=== PATIENT | male | born 1960 | race African-American/Black ===

== ENCOUNTER 2017-04-30 13:39 | Emergency (ER) | payer MEDICAID ==
[~2017-04-30] VITALS: Ht 180.3 cm; Wt 75.3 kg
[~2017-04-30 13:39] MED LIST: ALBUTEROL INHALER; PHEN100C4 PO; QUET100T PO
[2017-04-30 15:32] VITALS: BP 120/78
[2017-04-30 18:01] LABS: APPEARANCE,URINE SL CLOUDY (CLEAR); BILIRUBIN,URINE NEGATIVE (NEGATIVE); BLOOD, URINE TRACE-I (NEGATIVE); COLOR,URINE YELLOW (YELLOW); LEUKOCYTE ESTERASE ,URINE 2+ (NEGATIVE); NITRITE, URINE NEGATIVE (NEGATIVE); UGLUCOSE NEGATIVE (NEGATIVE)
[2017-04-30 18:06] LABS: RBC,URINE 3-10 (FEW) /HPF (0-5); WBC,URINE TOO MANY TO COUNT /HPF (0-5)
[2017-04-30] MEDS ORDERED: cefTRIAXone 1,000 MG in LIDOCAINE 1% ***ER ONLY *** 2.1 ML IM ONE (18:15)
[2017-04-30 18:43] VITALS: BP 120/78
--- NOTE | 2017-04-30 18:48 | NUR ---
Patient discharged with v/s stable. Written and verbal after care instructions given and explained. Patient alert, oriented and verbalized understanding of instructions. Ambulatory with to car. All questions addressed prior to discharge. ID band removed. Patient advised to follow up with PMD. Rx of DOXYCYCLINE AND PYRIDIUM given. Patient educated on indication of medication including possible reaction and side effects. Opportunity to ask questions provided and answered.
== END 2017-04-30 18:40 | disposition home or self-care (01) ==
LOC: MED 13:39
DX: N39.0 Urinary tract infection, site not specified (principal); J45.909 Unspecified asthma, uncomplicated
CPT/HCPCS: 81001; 87086; 99284

== ENCOUNTER 2019-05-07 22:25 | Emergency (ER) | payer MEDICAID ==
[~2019-05-07] VITALS: Ht 180.3 cm; Wt 117.9 kg
[2019-05-07 22:30] VITALS: BP 131/74
--- NOTE | 2019-05-07 22:33 | NUR ---
TO LOBBY A/W BED VIA WHEELCHAIR
--- NOTE | 2019-05-07 23:30 | NUR ---
PT BROUGHT TO BED 11 VIA WHEELCHAIR
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
[2019-05-08] MEDS ORDERED: fentaNYL 0.05 MG/ML VIAL IVP ONE (02:20)
[2019-05-08] MEDS ORDERED: PANTOPRAZOLE 40 MG INJ VIAL IVP ONE (02:25)
[2019-05-08] MEDS ORDERED: fentaNYL 0.05 MG/ML VIAL ONE (03:24)
[2019-05-08 03:25] LABS: BASOPHILS % (AUTO) 0.3 % (0.0-2.0); EOSINOPHILS # (AUTO) 0.7 K/uL (0-0.4); HEMATOCRIT 27.8 % (36-52); HEMOGLOBIN 8.9 g/dL (12.0-18.0); LYMPHOCYTES # (AUTO) 0.9 K/uL (2.0-11.5); LYMPHOCYTES % (AUTO) 16.3 % (20.5-51.1); MEAN CORPUSCULAR HEMOGLOBIN 25 pg (27-31); MEAN CORPUSCULAR HGB CONC 32 g/dL (33-37); MEAN CORPUSCULAR VOLUME 76.5 fL (80-94); MONOCYTES # (AUTO) 0.3 K/uL (0.8-1.0); MONOCYTES % (AUTO) 4.6 % (1.7-9.3); NEUTROPHILS # (AUTO) 3.8 K/uL (1.8-7.7); NEUTROPHILS % (AUTO) 66.2 % (42.2-75.2); PLATELET COUNT (AUTO) 271 K/uL (140-450); RED BLOOD CELL COUNT(AUTO) 3.63 MIL/uL (4.20-6.10); RED CELL DISTRIBUTION WIDTH 19.6 % (11.6-13.7); WHITE BLOOD COUNT (AUTO) 5.8 K/uL (4.8-10.8)
[2019-05-08 03:26] LABS: APPEARANCE,URINE CLEAR (CLEAR); BILIRUBIN,URINE NEGATIVE (NEGATIVE); BLOOD, URINE NEGATIVE (NEGATIVE); COLOR,URINE YELLOW (YELLOW); LEUKOCYTE ESTERASE ,URINE TRACE (NEGATIVE); NITRITE, URINE NEGATIVE (NEGATIVE); UGLUCOSE NEGATIVE (NEGATIVE)
[2019-05-08 03:34] LABS: RBC,URINE 0-5 /HPF (0-5)
[2019-05-08 03:41] LABS: ALBUMIN 3.7 g/dL (3.4-5.0); ANION GAP 15.7 (8-16); CARBON DIOXIDE 26.1 mmol/L (21-32); CREATININE 1.4 mg/dL (0.7-1.3); EOSINOPHILS % (AUTO) 12.6 % (0.0-4.0); POTASSIUM 4.8 mmol/L (3.5-5.1); TOTAL BILIRUBIN 0.3 mg/dL (0.0-1.0)
[2019-05-08] MEDS ORDERED: PROMETHAZINE 25 MG/ML VIAL IVP ONE (04:35)
[2019-05-08] MEDS ORDERED: LORazepam 2 MG/ML VIAL IVP ONE (04:35)
[2019-05-08] MEDS ORDERED: ACETAMINOPHEN/CODEINE 300/30MG 1 TAB PO ONE (05:00)
--- NOTE | 2019-05-08 06:11 | NUR ---
pt transfer to ct via w/c.
[2019-05-08] MEDS ORDERED: PROMETHAZINE 25 MG/ML VIAL ONE (06:55)
--- NOTE | 2019-05-08 07:26 | NUR ---
Pt report given to WYATT MENDEZ. Transfer of care at this time.
[2019-05-08 08:58] VITALS: BP 108/64
--- NOTE | 2019-05-08 08:58 | NUR ---
Patient discharged with v/s stable. Written and verbal after care instructions given and explained. Patient alert, oriented and verbalized understanding of instructions. Ambulatory with steady gait. All questions addressed prior to discharge. ID band removed. Patient advised to follow up with PMD. Rx of MOTRIN,ZOFRAN,NORCO given. Patient educated on indication of medication including possible reaction and side effects. Opportunity to ask questions provided and answered.
== END 2019-05-08 08:58 | disposition home or self-care (01) ==
LOC: MED 22:25
DX: R10.13 Epigastric pain (principal); J45.909 Unspecified asthma, uncomplicated; Z79.899 Other long term (current) drug therapy
CPT/HCPCS: 36415; 74176; 80053; 81001; 82150; 83690; 85025; 87086; 96374; 96375; 99284; C9113; J2060; J2550; J3010

== ENCOUNTER 2019-05-19 03:50 | Emergency (ER) | payer MEDICAID ==
[~2019-05-19] VITALS: Ht 180.3 cm; Wt 72.6 kg
[2019-05-19 04:00] VITALS: BP 123/63
--- NOTE | 2019-05-19 04:09 | NUR ---
PT SCOTTIE HOLDEN. TAKEN TO BED 11
--- NOTE | 2019-05-19 04:10 | NUR ---
PT ASSESSMENT COMPLETE. PT LALYING SUPINE IN BED. WILL CONTINUE TO MONITOR.
[2019-05-19] MEDS ORDERED: DICYCLOMINE HCL LIQUID 20 MG, ALUMINUM HYD/MAG/SIMETHICONE 30 ML, LIDOCAINE VISCOUS 2% ... PO ONE ×3 (04:45)
--- NOTE | 2019-05-19 04:45 | NUR ---
PT REPORTS DECCREASED PAIN 11/10. WILL CONTINUE TO MONITOR.
[2019-05-19] MEDS ORDERED: LIDOCAINE VISCOUS 2% 20 ML UDC ONE (04:53)
[2019-05-19] MEDS ORDERED: ALUMINUM HYD/MAG/SIMETHICONE 30 ML UDC ONE (04:53)
[2019-05-19] MEDS ORDERED: DICYCLOMINE HCL LIQUID 10 MG/5 ML UDC ONE (04:54)
[2019-05-19] MEDS ORDERED: MORPHINE SULFATE 4 MG/ML SYR IM ONE (05:25)
--- NOTE | 2019-05-19 05:43 | NUR ---
BLOOD DRAWN AND TAKEN TO LAB.
[2019-05-19 06:27] LABS: CREATININE 1.3 mg/dL (0.7-1.3)
[2019-05-19 06:28] LABS: ALBUMIN 2.6 g/dL (3.4-5.0); TOTAL BILIRUBIN 0.1 mg/dL (0.0-1.0)
[2019-05-19 06:31] LABS: ANION GAP 9.9 (8-16); CARBON DIOXIDE 30.1 mmol/L (21-32)
--- NOTE | 2019-05-19 07:00 | NUR ---
PT UP FOR DISCHASRGE. PT REPORTS UNRESOLVED PAIN AND WOULD LIKE TO SPEAK WITH ERMD. DR. SOLOMON MADE AWARE.
--- NOTE | 2019-05-19 07:15 | NUR ---
BEDSIDE REPORT GIVEN TO WYATT PATEL. TRANSFER OF CARE AT THIS TIME.
[2019-05-19] MEDS ORDERED: MORPHINE SULFATE 4 MG/ML SYR IVP ONE ×2 (07:20→08:40)
[2019-05-19] MEDS ORDERED: ONDANSETRON 4 MG/2 ML VIAL IVP ONE (07:20)
[2019-05-19] MEDS ORDERED: NACL 0.9% 1,000 ML IV ONE (07:20)
--- NOTE | 2019-05-19 07:49 | NUR ---
RECEIEVED SBAR REPORT FROM ADRIEL SCHNEIDER. PATIENT IS IN BED AND RATES FLANK/ABD PAIN 10/10. IV THERAPY STARTED ON PATIENT.
--- NOTE | 2019-05-19 08:50 | NUR ---
PATIENTS PAIN IS UNRESOLVED, RATING ABD PAIN 10/10. ERMD NOTIFIED. MORPHINE WILL BE GIVEN.
[2019-05-19 09:38] VITALS: BP 128/67
--- NOTE | 2019-05-19 09:39 | NUR ---
Patient discharged with v/s stable. Written and verbal after care instructions given and explained. Patient alert, oriented and verbalized understanding of instructions. Ambulatory with steady gait. All questions addressed prior to discharge. ID band removed. Patient advised to follow up with PMD. Rx of ALANNAH CUETO given. Patient educated on indication of medication including possible reaction and side effects. Opportunity to ask questions provided and answered.
--- NOTE | 2019-05-23 08:24 | NUR ---
Late entry. Confirmed with RN that 0.9 NS IV completed at 0845
== END 2019-05-19 09:39 | disposition home or self-care (01) ==
LOC: MED 03:50
DX: R10.13 Epigastric pain (principal); J45.909 Unspecified asthma, uncomplicated; Z79.899 Other long term (current) drug therapy
CPT/HCPCS: 36415; 80053; 83690; 96361; 96372; 96374; 96375; 96376; 99283; J2270; J2405; J7030

== ENCOUNTER 2021-11-18 18:30 | Emergency (ER) | payer MEDICAID ==
[~2021-11-18] VITALS: Ht 175.3 cm; Wt 72.6 kg
[2021-11-18 19:05] VITALS: BP 145/95
[2021-11-18 19:52] LABS: BASOPHILS % (AUTO) 0.7 % (0.0-2.0); EOSINOPHILS # (AUTO) 0.6 K/uL (0-0.4); EOSINOPHILS % (AUTO) 14.6 % (0.0-4.0); HEMATOCRIT 40.5 % (36-52); HEMOGLOBIN 13.6 g/dL (12.0-18.0); LYMPHOCYTES # (AUTO) 1.3 K/uL (2.0-11.5); LYMPHOCYTES % (AUTO) 33.4 % (20.5-51.1); MEAN CORPUSCULAR HEMOGLOBIN 30 pg (27-31); MEAN CORPUSCULAR HGB CONC 34 g/dL (33-37); MEAN CORPUSCULAR VOLUME 88.1 fL (80-94); MONOCYTES # (AUTO) 0.2 K/uL (0.8-1.0); MONOCYTES % (AUTO) 6.1 % (1.7-9.3); NEUTROPHILS # (AUTO) 1.8 K/uL (1.8-7.7); NEUTROPHILS % (AUTO) 45.2 % (42.2-75.2); PLATELET COUNT (AUTO) 270 K/uL (140-450); RED CELL DISTRIBUTION WIDTH 13.5 % (11.6-13.7)
[2021-11-18 20:12] LABS: ALBUMIN 3.9 g/dL (3.4-5.0); ANION GAP 11.7 (8-16); ASPARTATE AMINOTRANSFERASE 19 U/L (15-37); CARBON DIOXIDE 28.2 mmol/L (21-32); CHLORIDE 105 mmol/L (98-107); CREATININE 1.4 mg/dL (0.6-1.3); GFR ARICAN-AMERICAN 66 mL/min (>90); GLUCOSE 121 mg/dL (74-106); LIPASE 935 U/L (73-393); POTASSIUM 4.9 mmol/L (3.5-5.1); SODIUM SERUM 140 mmol/L (136-145); TOTAL BILIRUBIN 0.3 mg/dL (0.0-1.0); UREA NITROGEN, BLOOD 14 mg/dL (7-18)
--- NOTE | 2021-11-18 20:33 | NUR ---
PT TO CHAIR D AT THIS TIME
--- NOTE | 2021-11-18 21:30 | NUR ---
MORPHINE NOT GIVEN
[2021-11-18] MEDS ORDERED: KETOROLAC 30 MG/ML VIAL IM ONE (21:35)
[2021-11-18] MEDS: MORPHINE SULFATE 4 MG/ML SYR IM ONE (21:41)
[2021-11-18 21:49] VITALS: BP 145/95
--- NOTE | 2021-11-18 21:49 | NUR ---
Chart checked and completed.
--- NOTE | 2021-11-18 21:49 | NUR ---
Patient discharged with v/s stable. Written and verbal after care instructions given and explained. Patient verbalized understanding. Ambulatory with steady gait. All questions addressed prior to discharge. Advised to follow up with PMD.
[2021-11-19] MEDS: MORPHINE SULFATE 4 MG/ML SYR IM ONE (00:09)
== END 2021-11-18 21:45 | disposition home or self-care (01) ==
LOC: MED 18:30
DX: K85.90 Acute pancreatitis without necrosis or infection, unspecified (principal); K21.9 Gastro-esophageal reflux disease without esophagitis; J45.909 Unspecified asthma, uncomplicated
CPT/HCPCS: 36415; 71045; 74176; 80053; 83690; 84484; 85025; 93005; 99285; J1885; Q0092

== ENCOUNTER 2023-04-30 01:58 | Emergency (ER) | payer MEDICAID ==
[~2023-04-30] VITALS: Ht 188 cm; Wt 104.3 kg
[2023-04-30 02:08] VITALS: BP 135/67; PULSE 69; RESP 18; TEMP 98.6; O2SAT 97
[2023-04-30 03:11] LABS: BASOPHILS % (AUTO) 0.3 % (0.0-2.0); EOSINOPHILS # (AUTO) 0.2 K/uL (0-0.4); EOSINOPHILS % (AUTO) 6.6 % (0.0-4.0); HEMATOCRIT 35.8 % (36-52); HEMOGLOBIN 12.1 g/dL (12.0-18.0); LYMPHOCYTES # (AUTO) 0.7 K/uL (2.0-11.5); LYMPHOCYTES % (AUTO) 18.9 % (20.5-51.1); MEAN CORPUSCULAR HEMOGLOBIN 29 pg (27-31); MEAN CORPUSCULAR HGB CONC 34 g/dL (33-37); MEAN CORPUSCULAR VOLUME 84.3 fL (80-94); MONOCYTES # (AUTO) 0.3 K/uL (0.8-1.0); MONOCYTES % (AUTO) 9.2 % (1.7-9.3); NEUTROPHILS # (AUTO) 2.3 K/uL (1.8-7.7); PLATELET COUNT (AUTO) 154 K/uL (140-450); RED BLOOD CELL COUNT(AUTO) 4.25 MIL/uL (4.20-6.10); RED CELL DISTRIBUTION WIDTH 15.4 % (11.6-13.7); WHITE BLOOD COUNT (AUTO) 3.5 K/uL (4.8-10.8)
[2023-04-30 03:34] LABS: ANION GAP 10.8 (8-16); CALCIUM 8.1 mg/dL (8.5-10.1); CREATININE 1.4 mg/dL (0.6-1.3); POTASSIUM 3.8 mmol/L (3.5-5.1)
[2023-04-30 03:35] LABS: ALBUMIN 3.4 g/dL (3.4-5.0); BILIRUBIN,DIRECT 0.1 mg/dL (0.0-0.3); TOTAL BILIRUBIN 0.2 mg/dL (0.0-1.0)
[2023-04-30 04:57] LABS: FLU A ANTIGEN negative (NEGATIVE); FLU B ANTIGEN NEGATIVE (NEGATIVE)
[2023-04-30 08:03] LABS: APPEARANCE,URINE CLEAR (CLEAR); BILIRUBIN,URINE NEGATIVE (NEGATIVE); BLOOD, URINE NEGATIVE (NEGATIVE); COLOR,URINE YELLOW (YELLOW); LEUKOCYTE ESTERASE ,URINE NEGATIVE (NEGATIVE); NITRITE, URINE NEGATIVE (NEGATIVE); PROTEIN,URINE TRACE (NEGATIVE); UGLUCOSE NEGATIVE (NEGATIVE); UROBILINOGEN,URINE 0.2 EU/dL (0.2 - 1)
[2023-04-30 08:10] LABS: BACTERIA,URINE 0-2 /HPF (None Seen); MUCUS,URINE None Seen /LPF (None Seen); RBC,URINE 0-5 /HPF (0-5); SQUAMOUS EPITHELIAL CELL,UR 0-3 (FEW) /LPF (0-3 (FEW)); WBC,URINE 0 /HPF (0-5)
[2023-04-30] MEDS ORDERED: LOPE-289 PO (08:33)
== END 2023-04-30 08:53 | disposition home or self-care (01) ==
LOC: MED 01:58
DX: R10.13 Epigastric pain (principal); R19.7 Diarrhea, unspecified; Z20.822 Contact with and (suspected) exposure to COVID-19; J45.909 Unspecified asthma, uncomplicated; Z79.899 Other long term (current) drug therapy
CPT/HCPCS: 36415; 71045; 74177; 80048; 80076; 81001; 83690; 84484; 85025; 87426; 87804; 93005; 96372; 96374; 96375; 99285; Q9967